=== PATIENT | male | born 1960 | race Caucasian/White ===

== ENCOUNTER 2018-07-18 07:31 | Day surgery (SDC) ==
[2018-07-10 16:23] LABS: HEMATOCRIT 38.9 % (42.0-52.0); HEMOGLOBIN 13.3 g/dL (14.0-18.0); MCHC 34.2 g/dL (33-37); MCV 93.7 FL (81-99); MPV 9.5 FL (7.4-10.4); RBC 4.15 XMIL (4.7-6.1); RDW 12.4 % (11.5-14.5); WBC 5.39 X1000 (4.8-10.8)
[2018-07-10 16:29] LABS: INR 0.89; PROTIME 12.7 Seconds (11.0-16.0)
[2018-07-10 16:30] LABS: PTT 29.8 Seconds (22.3-41.8)
[2018-07-10 16:57] LABS: CALCIUM 8.7 mg/dL (8.8-10.2); CREATININE 1.3 mg/dL (0.7-1.2); POTASSIUM 4.3 mmol/L (3.5-5.1)
--- NOTE | 2018-07-17 19:52 | HISTORY AND PHYSICAL ---
HISTORY OF PRESENT ILLNESS: A 57-year-old male with significant BPH with weak stream, hesitancy and nocturia. He has been on Flomax which was increased to twice a day formulation followed by addition of finasteride. He continues to have significant symptoms and desires intervention. He was counseled on transurethral resection of prostate wants to proceed with bipolar TURP. PAST MEDICAL HISTORY: Diverticulitis. BPH. PAST SURGICAL HISTORY: Appendectomy, cholecystectomy, colon resection. ALLERGIES: Penicillin. HOME MEDICATIONS: Flomax, finasteride, [facility]. FAMILY HISTORY: Positive for coronary artery disease and hypertension. SOCIAL HISTORY: Denies tobacco, alcohol or illicit drug use. PHYSICAL EXAMINATION: GENERAL: No acute distress. Pleasant male. HEENT: Normocephalic, atraumatic. CARDIOVASCULAR: Regular rhythm. PULMONARY: Bilateral breath sounds. ABDOMEN: Scaphoid. Nontender to palpation. GENITOURINARY: Normal external male genitalia. ASSESSMENT: A 57-year-old male with significant BPH with symptoms despite dual medical therapy. He desires intervention. We discussed bipolar transurethral resection of prostate with the risks including but not limited to bleeding, infection, injury to the bladder, injury to adjacent structures, retrograde ejaculation as a permanent side effect, long-term complications such as bladder neck contracture, small risk of urinary incontinence, and small risk of erectile dysfunction were explained. He voiced understanding and wants to proceed. PLAN: Bipolar transurethral resection of the prostate. cc: Joce Cruz MD
[2018-07-18] MEDS ORDERED: LR 1,000 ML ONE (07:56)
[2018-07-18] MEDS ORDERED: LEVAQUIN 500 MG/D5W 500 MG/100 ML IVPB ONE (07:56)
[2018-07-18] MEDS ORDERED: PEPCID ONE (07:56)
[2018-07-18] MEDS ORDERED: REGLAN ONE (07:56)
[2018-07-18] MEDS ORDERED: DIPRIVAN 1% ONE ×2 (08:59→09:07)
[2018-07-18] MEDS ORDERED: FENTANYL ONE (09:16)
[2018-07-18] MEDS ORDERED: DECADRON ONE (09:45)
[2018-07-18] MEDS ORDERED: ZOFRAN ONE (09:45)
[2018-07-18] MEDS ORDERED: OFIRMEV 1000 MG/ISOTONIC SOLN 1,000 MG/100 ML BOTTLE ONE (10:18)
[2018-07-18] MEDS ORDERED: D5 1/2 NS 1,000 ML ONE (10:18)
[2018-07-18] MEDS: DILAUDID ONE ×2 (10:22→10:38)
[2018-07-18] MEDS ORDERED: MORPHINE IV PRN (10:35)
[2018-07-18] MEDS ORDERED: DILAUDID IV PRN (10:45)
[2018-07-18] MEDS ORDERED: NORCO-7.5 PO PRN (10:45)
[2018-07-18] MEDS ORDERED: PHENERGAN IV PRN (10:45)
[2018-07-18] MEDS ORDERED: NORCO-5 PO PRN (10:45)
[2018-07-18] MEDS ORDERED: NORCO-10 PO PRN (10:45)
[2018-07-18] MEDS ORDERED: LABETALOL IV PRN (10:45)
[2018-07-18] MEDS ORDERED: ZOFRAN IV PRN (10:45)
[2018-07-18] MEDS ORDERED: PHENERGAN PO PRN (10:45)
[2018-07-18] MEDS ORDERED: PHENERGAN PR PRN (10:45)
[2018-07-18] MEDS ORDERED: SODIUM CHLORIDE 0.9% INJ PRN (10:45)
[2018-07-18] MEDS: D5 1/2 NS 1,000 ML IV SCH ×2 (11:24→19:47)
[2018-07-18] MEDS: DITROPAN PO PRN ×2 (13:33→22:25)
[2018-07-18] MEDS ORDERED: OFIRMEV 1000 MG/ISOTONIC SOLN 1,000 MG/100 ML BOTTLE IV PRN (16:00)
[2018-07-18] MEDS: NORCO-10 PO SCH ×2 (17:36→22:25)
[2018-07-18] MEDS: PERIDEX MT SCH (20:38)
[2018-07-18] MEDS: COLACE PO SCH (20:39)
[2018-07-18] MEDS: HYTRIN PO SCH (20:39)
[2018-07-19] MEDS: D5 1/2 NS 1,000 ML IV SCH (04:32)
[2018-07-19] MEDS: NORCO-10 PO SCH (06:27)
[2018-07-19] MEDS: DITROPAN PO PRN (06:27)
[2018-07-19 06:59] LABS: HEMOGLOBIN 13.4 g/dL (14.0-18.0); MCH 32.2 PG (27-31); MCHC 33.5 g/dL (33-37); MCV 96.2 FL (81-99); MPV 9.7 FL (7.4-10.4); RBC 4.16 XMIL (4.7-6.1); RDW 12.4 % (11.5-14.5); WBC 8.96 X1000 (4.8-10.8)
[2018-07-19 07:33] LABS: AGAP 10; BUN 10 mg/dL (8-22); CALCIUM 8.6 mg/dL (8.8-10.2); CHLORIDE 104 mmol/L (98-107); COSMO 283; CREATININE 0.9 mg/dL (0.7-1.2); ESTIMATED GFR > 60; GLUCOSE 112 mg/dL (70-104); POTASSIUM 3.9 mmol/L (3.5-5.1); SODIUM 142 mmol/L (136-145); TCO2 28 mmol/L (25-35)
[2018-07-19] MEDS ORDERED: LEVAQUIN 500 MG/D5W 500 MG/100 ML IVPB IV SCH (08:30)
[2018-07-19] MEDS: HYTRIN PO SCH (08:35)
[2018-07-19] MEDS: COLACE PO SCH (08:35)
[2018-07-19] MEDS: PERIDEX MT SCH (08:36)
[2018-07-19] MEDS ORDERED: FLOMAX PO SCH (09:00)
[2018-07-19 11:57] VITALS: BP 129/70
--- NOTE | 2018-07-29 20:57 | OPERATIVE NOTE ---
PROCEDURE DATE: 07/18/2018 SURGEON: Joce Cruz MD. PREOPERATIVE DIAGNOSES: 1. Benign prostatic hyperplasia. 2. Weak stream. 3. Urinary retention. POSTOPERATIVE DIAGNOSES: 1. Benign prostatic hyperplasia. 2. Weak stream. 3. Urinary retention. PROCEDURE: Bipolar transurethral resection of the prostate with the loop. INDICATIONS: A 57-year-old male who has had longstanding history of BPH. He had tried Flomax and Flomax b.i.d. and eventually finasteride in addition to Flomax, but continues to have symptoms. He had an episode retention and prostatitis which prompted him to consider surgical intervention. FINDINGS: Significant trilobar prostatic hypertrophy, adequate hemostasis at conclusion of the case. Prostate chips were sent off for analysis. PROCEDURE IN DETAIL: After obtaining informed consent, the patient brought to the operating room. Perioperative antibiotics and laryngeal mask anesthesia were administered. He was placed in lithotomy position, prepped and draped in sterile fashion. A 21-Japanese rigid cystoscope was used to gain access to the urethra and the bladder which was then examined in a systematic fashion. He had trilobar prostatic hypertrophy with significant obstruction. The bladder showed moderate trabeculations, no mucosal lesions. No bladder stones and no sizable diverticula noted. I was able to see bilateral ureteral orifices. We then retrieved the cystoscope and introduced a 25- Japanese rigid resectoscope. Bipolar gyrus loop was then used to perform the transurethral resection of prostate. Starting at the bladder neck and shaving down the median lobe to the level of the bladder neck. We then resected prostatic adenoma from the bladder neck to the level of verumontanum distally to the depth of the capsule at 6 o'clock. Subsequently clockwise and counter clockwise in directions. Ellik was used to evacuate the chips. This was followed by obtaining and adequate hemostasis with cautery. We then removed the resectoscope and introduced a 20-Japanese, 3-way Braden catheter. He was extubated taken to PACU for further recovery. ESTIMATED BLOOD LOSS: 30 mL. COMPLICATIONS: None. DISPOSITION: To PACU, subsequently floor with continuous bladder irrigation. cc: Joce Cruz MD
== END 2018-07-19 12:04 | disposition home or self-care (01) ==
LOC: 4N 07:31 → PAT 07:31 → OPS 07:31
PROVIDERS: ATTEND Urology
PROC: UR.TURP (2018-07-18 09:00)
CPT/HCPCS: 80048; 85027; 85610; 85730; 88305; 88313; 94760; 94799; A9270; J0131; J1100; J1170; J1956; J2405; J3010; J7120